=== PATIENT | male | born 1965 | race Caucasian/White ===

== ENCOUNTER 2016-07-29 06:42 | Day surgery (SDC) | payer OTHER ==
--- NOTE | 2016-07-25 20:42 | HP ---
PREOPERATIVE HISTORY AND PHYSICAL: DATE OF ADMISSION/SURGERY: 07/29/16 [facility] DATE OF OFFICE VISIT: 07/25/16 ATTENDING SURGEON: Augustus Alexis MD (DICTATED BY ROMEO SOLER) PROCEDURE: Right knee arthroscopy, partial meniscectomy. CHIEF COMPLAINT: Right knee pain. HISTORY OF PRESENT ILLNESS: Mr. Jean is a 51-year-old gentleman who presents to the clinic for followup of right knee pain due to a work-related injury on . His knee pain is due to a medial meniscus tear. He has failed conservative measures to include physical therapy, braces, and NSAIDS, therefore he has agreed to undergo a right knee arthroscopy, partial meniscectomy with Dr. Alexis on 07/29/16. PAST MEDICAL HISTORY: Denies any current problems. PAST SURGICAL HISTORY: 1. Gardner teeth. 2. Vasectomy. 3. Colonoscopy. Denies prior complications with anesthesia. MEDICATIONS: 1. Ibuprofen 600 mg 3 times a day as needed for pain. 2. Nexium 24HR. ALLERGIES: No known drug allergies. FAMILY HISTORY: Positive for cancer in his father and anxiety. SOCIAL HISTORY: He lives with his spouse. He works as a teacher at [employer]. He used to chew tobacco, he quit 1-1/2 years ago. He reports occasional alcohol consumption. He is right hand dominant. REVIEW OF SYSTEMS: General: Negative for fever, chills, or night sweats. No known anesthesia problems. HEENT: Negative for headache, lightheadedness, or syncopal episodes. Integumentary: Negative for abrasions, lesions, or open wounds. Cardiothoracic: Negative for chest pain, palpitations, or edema. Negative for hypertension. Pulmonary: Negative for shortness of breath with exertion, chronic cough, or COPD. GI: Negative for nausea, vomiting, diarrhea, constipation, or GERD. : Negative for nocturia, urinary urgency, history of UTIs, or kidney problems. Musculoskeletal: Positive for current complaint. Neuro: Negative for numbness and tingling, history of seizure, stroke, or epilepsy. Endocrine: Negative for diabetes or thyroid disease. Heme: Negative for easy bruising, history of bleeding disorder, anemia, excessive bleeding, history of DVT or PE. Infectious Disease: Negative history of MRSA, hep C, or HIV. PHYSICAL EXAMINATION GENERAL: A 51-year-old well-developed, well-nourished male in no acute distress. Alert and oriented x3. Appropriate mood and affect. VITAL SIGNS: Height 70.5, weight 215. Pulse is 78, blood pressure 149/100, temperature 97.4, BMI of 30.4. HEENT: Normocephalic, atraumatic. PERRLA. NECK: Supple. Throat clear. PULMONARY: Lungs clear to auscultation bilaterally. No wheezing, rhonchi, or rales. CARDIO: Regular rate and rhythm. S1 and S2. No murmurs, gallops, or rubs. No edema. ABDOMEN: Positive bowel sounds. Soft and nontender. NEURO: Alert and oriented x3. Cranial nerves grossly intact. Sensation intact to light touch. MUSCULOSKELETAL: Right lower extremity: Skin is intact. No warmth or erythema. Mild effusion. Range of motion 0 to 120. Stable to varus and valgus stress. Stable Elva. Negative posterior draw. Positive Mercedez. Tenderness over the medial joint line. Calf is soft and nontender. +2 dorsalis pedis and posterior tibialis pulses. Sensation intact to light touch distally. STUDIES: X-rays and MRI of the right knee reveal mild osteoarthritic changes particularly in the patellofemoral joint, evidence of bilateral Daniel- Schlatter and horizontal medial meniscus tear. IMPRESSION: Right knee medial meniscus tear. PLAN: The patient is scheduled to undergo a right knee arthroscopy, partial meniscectomy with Dr. Alexis on 07/29/16. He will return to the office 10 to 14 days postop for followup and suture removal. Percocet will be used for postop pain management. ROMEO SOLER [id number]/[facility] #: [id number] [place]
[~2016-07-29 06:42] MED LIST: Buffered Lidocaine 0.9% SYRIN* 5 ML/SYR SYRINGE INTRADERM ONE; Famotidine IV* 10 MG/ML 2 ML (20 mg) IV ONE; Morphine INJ* 2 MG/ML 1 ML SYRINGE IV PRN; PROCHLORPERAZINE INJ 5 MG/ML 2 ML VIAL IV PRN; fentaNYL* 50 MCG/ML 2 ML VIAL (100 MCG VIAL) IV PRN; oxyCODONE/Acetamin 5/325 MG* TAB PO PRN
[2016-07-29] MEDS ORDERED: Famotidine IV* 10 MG/ML 2 ML (20 mg) ONE (06:44)
[2016-07-29] MEDS ORDERED: Buffered Lidocaine 0.9% SYRIN* 5 ML/SYR SYRINGE ONE (06:44)
[2016-07-29] MEDS ORDERED: ceFAZolin 2 GM PREMIX(*) 2 GM/50 ML BAG IVPB ONE (06:48)
[2016-07-29] MEDS ORDERED: fentaNYL* 50 MCG/ML 2 ML VIAL (100 MCG VIAL) ONE ×2 (07:18→07:52)
[2016-07-29] MEDS ORDERED: KETAMINE HCL* 50 MG/ML 10 ML VIAL ONE (07:19)
[2016-07-29] MEDS ORDERED: Midazolam* 1 MG/ML 5 ML VIAL (5 MG) ONE (07:19)
[2016-07-29] MEDS ORDERED: Bupivacaine 0.25% EPI 200,000* 30 ML SDV ONE (07:25)
[2016-07-29] MEDS ORDERED: Bupivacaine 0.25% SDV* 30 ML ONE (07:25)
[2016-07-29] MEDS ORDERED: Dexamethasone IV* 4 MG/ML 1 ML (4 MG) ONE (07:49)
[2016-07-29] MEDS ORDERED: Lidocaine 2% PF * 5 ML VIAL ONE (07:49)
[2016-07-29] MEDS ORDERED: Ketorolac INJ* 30 MG/ML 1 ML VIAL ONE (07:49)
[2016-07-29] MEDS ORDERED: Ondansetron INJ* 2 MG/ML VIAL ONE (07:49)
[2016-07-29] MEDS ORDERED: Propofol* 10 MG/ML 20 ML BTL IV PUSH ONE (07:49)
[2016-07-29] MEDS ORDERED: Labetalol IV* 5 MG/ML 20 ML VIAL ONE (07:50)
[2016-07-29] MEDS ORDERED: hydrALAZINE IV* 20 MG/ML VIAL ONE (08:53)
[2016-07-29 09:35] VITALS: BP 149/85
--- NOTE | 2016-07-29 19:56 | OP ---
CC: Primary care physician, Dr. James Velazquez* DATE OF OPERATION: 07/29/16 - [facility] DATE OF : 69 SURGEON: Augustus Alexis MD STRONG NITRIC OPERATOR: ROMEO Estes. An sales assistant institutional sales was needed for the entirety of the case to help with positioning, retraction, and was utilized throughout all portions of the case. ANESTHESIOLOGIST: Dr. Medina. ANESTHESIA: General. PRE-OP DIAGNOSIS: Right knee medial meniscal tear. POST-OP DIAGNOSES: Right knee medial meniscal tear, fraying of the lateral root of the meniscus. OPERATIVE PROCEDURE: Chondroplasty of the medial femoral condyle and patellofemoral joint and the patella INDICATIONS: Jose Carlos Jean is a 51-year-old male who sustained a work- related injury in October 2015. He failed conservative management including physical therapy. He had persistent catching and locking of the knee. The mechanical symptoms were what we were addressing. He did have some mild osteoarthritic changes but very mild on the preoperative MRI. Risks and benefits were discussed at length that included but are not limited to bleeding , infection, damage to nerve, vessels, surrounding structures, wound nonhealing , persistent pain, need for further surgery, risks of anesthesia, scarring, stiffness, incomplete relief of symptoms, need for further surgery, worsening arthritis, and risk of DVT. He has elected to proceed. COMPLICATIONS: None. ESTIMATED BLOOD LOSS: Minimal. TOURNIQUET TIME: Zero minute. DESCRIPTION OF PROCEDURE: The patient was greeted in the preoperative area by the attending surgeon. Correct extremity was marked and consent was confirmed. The patient was brought back to the operating suite, where he was placed in supine position on the operating table. He then underwent general anesthesia with LMA. The knee was then examined. He has had 0 to 130 degrees of range of motion, mild effusion, stable to varus and valgus stress, stable Elva, negative posterior drawer. An unsterile tourniquet was placed around the proximal thigh. The lateral post was positioned. The knee was intra- articularly injected with 0.25% Marcaine plain. After a minute of surgical pause, the right leg was then prepped and draped in the usual sterile fashion beginning with chlorhexidine soap, scrub, and alcohol wipe and a final prep with ChloraPrep. After appropriate surgical pause indicating side, site, procedure, and administration of antibiotics, the standard anterolateral portal was made sharply with an 11 blade. The scope was introduced into the joint. The joint was examined. There was synovitis anteriorly. There were grade 1 to 2 changes with a small amount of unstable fraying of the patella. The trochlea had grade 1 changes. The medial and lateral gutters were without loose bodies. The medial compartment was examined. There was an area of grade 2 changes with unstable flaps along the medial femoral condyle. The shaver was then used to do a small chondroplasty in the medial femoral condyle as well as remove some of the synovitis anteriorly. The probe was used to probe the medial meniscus, which had an unstable tear posteromedially. This was then debrided back using whitney and biters until there was a stable layer. About 30% to 40% of the meniscus was removed in this manner. The meniscus was further probed and there were no unstable flaps. There were grade 2 changes of the tibial plateau. Small chondroplasty of the plateau was also done. The scope was then brought into the notch. The ACL and PCL were intact. The knee was then placed in [id number] position. The scope was used to visualize the lateral compartment. There were grade 1 changes to the lateral femoral condyle, grade 1 to 2 changes of the tibial plateau. There was unstable fraying of the root the meniscus as well as the body of the meniscus that was debrided back using the shaver. The scope was placed in patellofemoral joint and some synovitis was removed. In the undersurface of the patella, a small chondroplasty was done to remove the unstable flaps. Final images were obtained. All fluid and debris was removed from the knee after lavage, and the portals were closed with 3-0 nylon. The knee intra-articularly injected with 0.25% Marcaine plain. Sterile dressings were applied and a Cryo/Cuff. He was awoken from anesthesia and transferred to PACU in stable condition. POSTOPERATIVE PLAN: He will be weightbearing as tolerated. He will be on the crutches. He will be discharged on pain medication. DVT prophylaxis was considered but deferred due to no previous personal or family history. I will see the patient back in 10 to 14 days. [id number]/[facility] #: [id number] [facility] SYSTEM[facility]
== END 2016-07-29 09:42 | disposition home or self-care (01) ==
LOC: OREAST 06:42
PROVIDERS: ATTEND Orthopaedic Surgery
DX: S83.231A Complex tear of medial meniscus, current injury, right knee, initial encounter (principal); X58.XXXA Exposure to other specified factors, initial encounter; Y99.0 Civilian activity done for income or pay; Y92.89 Other specified places as the place of occurrence of the external cause
CPT/HCPCS: J0360; J0690; J1100; J1885; J2250; J2405; J2704; J3010